=== PATIENT | female | born 1985 | race Caucasian/White ===

== ENCOUNTER 2021-08-30 21:26 | Emergency (ER) | payer MEDICAID ==
--- NOTE | 2021-08-30 22:13 | EDM.PDOC ---
ED HPI GENERAL MEDICAL PROBLEM - General Chief Complaint: ENT Problem Stated Complaint: NOSE INJURY Time Seen by Provider: 08/30/21 21:49 Source of Information: Reports: Patient, RN Notes Reviewed - History of Present Illness INITIAL COMMENTS - FREE TEXT/NARRATIVE: 36 yr old female accidentally hit by a shower curtain mary last evening. Suffered small lac injury bridge of nose. Has continued pain area of injury. There was bleeding from lac injury but none from distal nares. Last tetanus about 1 yr ago. Treatments QUILT STUFFER: Reports: Acetaminophen Nose Pain Score (Numeric/FACES): 7 - Related Data Allergies Allergy/AdvReac Type Severity Reaction Status Date / Time morphine Allergy Severe Hives Verified 08/30/21 21:43 Home Meds: Home Meds . [No Known Home Meds] 08/30/21 [History] Past Medical History Respiratory History: Reports: Asthma Dermatologic History: Reports: Other (See Below) Other Dermatologic History: plastic surgery to the left face - Infectious Disease History Infectious Disease History: Reports: None - Past Surgical History GI Surgical History: Reports: Cholecystectomy Female Surgical History: Reports: Section Musculoskeletal Surgical History: Reports: Carpal Tunnel Social & Family History - Tobacco Use Tobacco Use Status *Q: Current Every Day Tobacco User Years of Tobacco use: 20 Packs/Tins Daily: 1 - Caffeine Use Caffeine Use: Reports: Coffee, Energy Drinks, Soda, Tea - Recreational Drug Use Recreational Drug Use: No ED ROS ENT - Review of Systems Review Of Systems: See Below Constitutional: Reports: No Symptoms HEENT: Reports: Nose Pain Respiratory: Denies: Shortness of Breath Cardiovascular: Reports: No Symptoms Endocrine: Reports: No Symptoms : Reports: No Symptoms Musculoskeletal: Reports: No Symptoms Skin: Reports: Other (lac injury bridge of nose) Neurological: Reports: No Symptoms ED EXAM, ENT - Physical Exam Exam: See Below General Appearance: Alert, No Apparent Distress Ears: Normal External Exam Nose: Other (small 0.4 cm lac scabbed lac injury bridge of nose. Mild localized tenderness and swelling. no visual defromity, distal nares clear) Head: Other (cheek bone and remainder of face nontender) Neck: Supple Respiratory/Chest: No Respiratory Distress Extremities: Normal Inspection Neurological: Alert, Oriented, No Motor/Sensory Deficits Skin: Warm, Dry, Normal Color Course - Vital Signs Last Recorded V/S: Last Vital Signs Temp 97.0 F 08/30/21 21:47 Pulse 74 08/30/21 21:47 Resp 20 08/30/21 21:47 BP 139/79 08/30/21 21:47 Pulse Ox 98 08/30/21 21:47 - Orders/Labs/Meds Orders: Active Orders 24 hr Category Date Time Status Nasal Bone Min 3V [CR] Stat Exams 08/30/21 21:56 Taken - Re-Assessments/Exams Free Text/Narrative Re-Assessment/Exam: 08/30/21 22:31 There is a shadow at the nasal bridge area on Xray. I think that is just an overlying shadow, possible hairline fx, discussed with patient. Treatment the same. Departure - Departure Time of Disposition: 22:32 Disposition: Home, Self-Care 01 Condition: Fair Clinical Impression: Contusion of nose Qualifiers: Encounter type: initial encounter Qualified Code(s): S00.33XA - Contusion of nose, initial encounter Nasal laceration Qualifiers: Encounter type: initial encounter Qualified Code(s): S01.21XA - Laceration without foreign body of nose, initial encounter - Discharge Information Referrals: Antionette Mitchell NP [Primary Care Provider] - Forms: ED Department Discharge Additional Instructions: Antibiotic ointment 2 to 3 times daily. Ice packs as needed for swelling. Tylenol or ibuprofen for discomfort as needed. Sepsis Event Note (ED) - Focused Exam Vital Signs: Vital Signs Temp Pulse Resp BP Pulse Ox 08/30/21 21:47 97.0 F 74 20 139/79 98 - My Orders Last 24 Hours: My Active Orders 08/30/21 21:56 Nasal Bone Min 3V [CR] Stat - Assessment/Plan Last 24 Hours: My Active Orders 08/30/21 21:56 Nasal Bone Min 3V [CR] Stat
--- NOTE | 2021-08-31 09:27 | CR ---
Nasal bone: 2 views of the nasal bone were obtained. No discrete fracture or other bony abnormality is appreciated. Visualized paranasal sinuses show nothing acute. Impression: 1. No definite nasal bone abnormality is appreciated. Diagnostic code #1
== END 2021-08-30 23:08 | disposition home or self-care (01) ==
LOC: JD.ED 21:26
DX: S01.21XA Laceration without foreign body of nose, initial encounter (principal); Z88.5 Allergy status to narcotic agent; Z72.0 Tobacco use; W22.09XA Striking against other stationary object, initial encounter
CPT/HCPCS: 70160; 70160-26; 99283

== ENCOUNTER 2021-10-02 21:32 | Emergency (ER) | payer MEDICAID ==
[2021-10-02] MEDS ORDERED: Ketorolac 15 MG/ML SDV IM ONE (22:07)
[2021-10-02] MEDS ORDERED: Ondansetron 4 MG Tab.DIS PO ONE (22:07)
[2021-10-02 22:34] LABS: CORONAVIRUS COVID-19 NAA NEGATIVE (NEGATIVE)
== END 2021-10-02 23:20 | disposition home or self-care (01) ==
LOC: JD.ED 21:32
DX: R50.9 Fever, unspecified (principal); B97.4 Respiratory syncytial virus as the cause of diseases classified elsewhere; Z88.5 Allergy status to narcotic agent; Z72.0 Tobacco use; Z20.822 Contact with and (suspected) exposure to COVID-19
CPT/HCPCS: 0241U; 36415; 71045; 80053; 85025; 86140; 96372; 99284; A9270; J1885; 99283

== ENCOUNTER 2022-01-30 15:10 | Emergency (ER) | payer MEDICAID ==
[2022-01-30] MEDS ORDERED: Ketorolac 60 MG/2 ML SDV IM ONE (15:30)
== END 2022-01-30 16:30 | disposition home or self-care (01) ==
LOC: JD.ED 15:10 → SUPCPDRO 15:10 → JD.ED 16:30
DX: G89.18 Other acute postprocedural pain (principal); M54.50 Low back pain, unspecified; J45.909 Unspecified asthma, uncomplicated; Z90.49 Acquired absence of other specified parts of digestive tract; Z90.710 Acquired absence of both cervix and uterus; Z79.899 Other long term (current) drug therapy; Z88.6 Allergy status to analgesic agent
CPT/HCPCS: 96372; 99284; J1885; 99283

== ENCOUNTER 2022-07-03 21:47 | Emergency (ER) | payer MEDICAID | END 2022-07-03 22:50 | disposition left against medical advice (07) | LOC: JD.ED 21:47 | DX: Z53.21 Procedure and treatment not carried out due to patient leaving prior to being seen by health care provider (principal) ==

== ENCOUNTER 2022-08-18 04:41 | Emergency (ER) | payer MEDICAID ==
[2022-08-18] MEDS ORDERED: Ondansetron 4 MG/2 ML SDV IVPUSH ONE (04:55)
[2022-08-18] MEDS ORDERED: Sodium Chloride 0.9% 10 ML Syringe FLUSH PRN (04:55)
[2022-08-18] MEDS ORDERED: Sodium Chloride 0.9% 1,000 ML IV SCH (05:00)
[2022-08-18] MEDS ORDERED: Sodium Chloride 0.9% 1,000 ML IV ONE (06:31)
[2022-08-18] MEDS ORDERED: Lactated Ringers 1,000 ML IV SCH (07:45)
== END 2022-08-18 11:18 | disposition home or self-care (01) ==
LOC: JD.ED 04:41
DX: T44.6X1A Poisoning by alpha-adrenoreceptor antagonists, accidental (unintentional), initial encounter (principal); J45.909 Unspecified asthma, uncomplicated; Z88.5 Allergy status to narcotic agent; Z79.899 Other long term (current) drug therapy
CPT/HCPCS: 36415; 80053; 80143; 80179; 80307; 84443; 84703; 85025; 96361; 96374; 99284; J2405; J3490; J7030; J7120

== ENCOUNTER 2022-10-01 22:24 | Emergency (ER) | payer MEDICAID ==
[2022-10-01] MEDS ORDERED: Lidocaine 1% 10 ML MDV INJECT ONE (23:16)
== END 2022-10-02 00:11 | disposition home or self-care (01) ==
LOC: JD.ED 22:24
DX: S51.812A Laceration without foreign body of left forearm, initial encounter (principal); F17.210 Nicotine dependence, cigarettes, uncomplicated; Z88.5 Allergy status to narcotic agent; W26.8XXA Contact with other sharp object(s), not elsewhere classified, initial encounter; Y92.000 Kitchen of unspecified non-institutional (private) residence as the place of occurrence of the external cause
CPT/HCPCS: 12001; 99282

== ENCOUNTER 2023-03-06 20:09 | Emergency (ER) | payer MEDICAID, OTHER ==
[2023-03-06] MEDS ORDERED: Prazosin 1 MG Cap PO SCH (20:33)
[2023-03-06] MEDS ORDERED: traZODone 50 MG Tab PO ONE (20:33)
== END 2023-03-06 20:52 | disposition home or self-care (01) ==
LOC: JD.ED 20:09
DX: S01.81XA Laceration without foreign body of other part of head, initial encounter (principal); J45.909 Unspecified asthma, uncomplicated; Z88.5 Allergy status to narcotic agent; W26.8XXA Contact with other sharp object(s), not elsewhere classified, initial encounter
CPT/HCPCS: 99283; A9270; 12011

== ENCOUNTER 2023-03-11 18:45 | Emergency (ER) | payer MEDICAID | END 2023-03-11 19:46 | disposition home or self-care (01) | LOC: JD.ED 18:45 | DX: K08.89 Other specified disorders of teeth and supporting structures (principal); J45.909 Unspecified asthma, uncomplicated; Z88.5 Allergy status to narcotic agent | CPT/HCPCS: 99283 ==

== ENCOUNTER 2023-06-05 17:53 | Emergency (ER) | payer MEDICAID ==
[2023-06-05 19:13] LABS: CORONAVIRUS COVID-19 NAA NEGATIVE (NEGATIVE); INFLUENZA A NAA NEGATIVE (NEGATIVE)
[2023-06-05] MEDS ORDERED: Penicillin G Benzathine 1,200,000 Units/2 ML Syringe IM ONE (19:21)
[2023-06-05] MEDS ORDERED: Ketorolac 60 MG/2 ML SDV IM ONE (19:32)
== END 2023-06-05 19:59 | disposition home or self-care (01) ==
LOC: JD.ED 17:53
DX: J03.90 Acute tonsillitis, unspecified (principal); F17.210 Nicotine dependence, cigarettes, uncomplicated; J45.909 Unspecified asthma, uncomplicated; Z88.5 Allergy status to narcotic agent; Z20.822 Contact with and (suspected) exposure to COVID-19
CPT/HCPCS: 0240U; 87651; 96372; 99283; J0561; J1885

== ENCOUNTER 2024-01-03 15:31 | Emergency (ER) | payer MEDICAID ==
[2024-01-03 17:26] LABS: BASOPHILS PERCENT AUTO 0.5 % (0.0-1.0); EOSINOPHILS ABSOLUTE AUTO 0.2 K/mm3 (0.0-0.4); HEMATOCRIT 40.3 % (37.0-47.0); HEMOGLOBIN 13.8 gm/dl (12.0-16.0); IMMATURE GRAN ABSOLUTE AUTO 0.01 K/mm3 (0.00-0.05); IMMATURE GRAN PERCENT AUTO 0.1 % (0.0-0.4); LYMPHOCYTES ABSOLUTE AUTO 2.3 K/mm3 (1.0-4.8); LYMPHOCYTES PERCENT AUTO 27.3 % (24.0-44.0); MEAN CORPUSCULAR HEMOGLOBIN 29.6 pg (28.0-32.0); MEAN CORPUSCULAR HGB CONC 34.2 g/dl (32.0-36.0); MEAN CORPUSCULAR VOLUME 86.3 fl (83.0-99.0); MEAN PLATELET VOLUME 9.6 fl (9.4-12.3); MONOCYTES ABSOLUTE AUTO 0.6 K/mm3 (0.0-0.8); MONOCYTES PERCENT AUTO 7.5 % (0.0-8.0); NEUTROPHILS ABSOLUTE AUTO 5.3 K/mm3 (1.8-7.7); NEUTROPHILS PERCENT AUTO 62.6 % (41.0-71.0); PLATELET COUNT,PLT 231 K/mm3 (150-400); RED BLOOD CELL COUNT 4.67 M/mm3 (4.10-5.30); WHITE BLOOD CELL COUNT,WBC 8.51 K/mm3 (3.9-11.3)
[2024-01-03 17:57] LABS: ALBUMIN 3.4 g/dl (3.4-5.0); ANION GAP 12.7 (5-15); BILIRUBIN TOTAL 0.6 mg/dL (0.2-1.0); CALCIUM 8.5 mg/dL (8.5-10.1); CREATININE 0.7 mg/dL (0.55-1.02); EST CRCL DRUG DOSING (CG) 88.37 mL/min; PROTEIN TOTAL,TP 6.9 g/dl (6.4-8.2); TSH 2.177 uIU/mL (0.358-3.74)
[2024-01-03] MEDS: FLUoxetine 10 MG Cap PO ONE (18:15)
[2024-01-03] MEDS: ARIPiprazole 5 MG Tab PO ONE (18:16)
[2024-01-03] MEDS: Gabapentin 300 MG Cap PO ONE ×2 (18:18)
[2024-01-03 18:57] LABS: AMPHETAMINES SCREEN, URINE PRESUMPTIVE POSITIVE (CUTOFF=500); BARBITURATE SCREEN,URINE NEGATIVE (CUTOFF=200); BENZODIAZEPINES SCREEN,URINE NEGATIVE (CUTOFF=150); BUPRENORPHINE SCREEN,URINE NEGATIVE (CUTOFF=10); METHADONE SCREEN, URINE NEGATIVE (CUTOFF=200); METHAMPHETAMINES SCREEN, URINE PRESUMPTIVE POSITIVE (CUTOFF=500); OXYCODONE SCREEN,URINE NEGATIVE (CUT0FF=100); THC SCREEN,URINE 20 NG/ML NEGATIVE (CUTOFF=50)
[2024-01-03 19:23] LABS: POTASSIUM,K 3.7 mEq/L (3.5-5.1)
[2024-01-03] MEDS: cloNIDine 0.1 MG Tab PO ONE (19:25)
[2024-01-03] MEDS: traZODone 50 MG Tab PO ONE (19:26)
== END 2024-01-04 11:15 | disposition home or self-care (01) ==
LOC: JD.ED 15:31
DX: F32.A Depression, unspecified (principal); R45.851 Suicidal ideations; F15.10 Other stimulant abuse, uncomplicated; F17.210 Nicotine dependence, cigarettes, uncomplicated; Z79.899 Other long term (current) drug therapy; Z88.5 Allergy status to narcotic agent
CPT/HCPCS: 36415; 80053; 80143; 80179; 80306; 80307; 81025; 84443; 85025; 99285; A9270